=== PATIENT | male | born 1990 | race Hispanic/Latino ===

== ENCOUNTER 2022-08-29 10:19 | Emergency (ER) | payer SELFPAY ==
[~2022-08-29] VITALS: Ht 172 cm; Wt 83.0 kg
[2022-08-29] MEDS ORDERED: TETANUS/DIPHTHERIA TOXOID [ADULT] 0.5 ML VIAL IM ONE (11:00)
[2022-08-29] MEDS ORDERED: LIDOCAINE HCL 1% 20 ML VIAL ONE (13:28)
[2022-08-29] MEDS ORDERED: CEPH500B PO (13:42)
[2022-08-29 14:08] VITALS: BP 126/74
== END 2022-08-29 14:10 | disposition home or self-care (01) ==
LOC: EDH 10:19
DX: S61.411A Laceration without foreign body of right hand, initial encounter (principal); W26.9XXA Contact with unspecified sharp object(s), initial encounter; Y93.89 Activity, other specified; Y92.89 Other specified places as the place of occurrence of the external cause; Y99.8 Other external cause status
CPT/HCPCS: 12002; 73130; 90471; 90714